=== PATIENT | male | born 1955 | race Caucasian/White ===

== ENCOUNTER → 2016-06-20 | Outpatient (CLI) | payer BC ==
[~2016-06-20] VITALS: Ht 175.3 cm; Wt 105.2 kg
[~2016-06-20] MED LIST: APIX5TAB2 PO; ASP81CT PO; ASP81TEC PO; ASPI-892 PO; ASPI-999 PO; CLOP75TA28 PO; CLPD75T PO; DIPH25TA82 PO; ESCI10TA48 PO; ESCT10T PO; IBUP-30 PO; MTP25TSR PO; NITR0.4T SL; NITR0.4T39 SL; OMEG1CAP51 PO; OMG1KC PO; REGADENOSON 0.4 MG/5 ML SYR (LEXISCAN) IV ONE; ROSU10TA PO; ROSU10TA12 PO; ROSU20TA14 PO; SOTA80TA PO; VALS1TAB76 PO; VALS80TA PO
[2016-06-20] MEDS: CATHETER FLUSH 10 ML SYR IV PRN ×2 (07:23→09:17)
[2016-06-20 09:16] VITALS: BP 149/98
--- NOTE | 2016-06-22 10:49 | STRESS TEST ---
PROCEDURE PHYSICIAN: IVON KELLY RESTING AND POST REGADENOSON TECHNETIUM 99M TETROFOSMIN SPECT CT IMAGING DATE OF PROCEDURE: 06/20/2016 ORDERING PHYSICIAN: Digna Calix APRN. PRIMARY PHYSICIAN: Dr. Arana OTHER PHYSICIAN: Dr. Kelly. CLINICAL DIAGNOSIS: Coronary artery disease, atrial fibrillation. Baseline images were carried out after injection of 10.74 mCi technetium 99m tetrofosmin. This was followed by 0.4 mg of regadenoson and 31.4 mCi technetium 99m tetrofosmin for stress imaging. The electrocardiogram showed sinus rhythm at baseline and it did not change significantly with regadenoson infusion. The patient tolerated the procedure well. Review of images at rest and following stress, does not indicate any distinct perfusion defects consistent with significant myocardial ischemia or infarction. Some degree of diaphragmatic attenuation is seen both at rest and following regadenoson infusion. Gated images show normal global left ventricular systolic function with normal regional wall motion, including the diaphragmatic wall of the left ventricle. Left ventricular ejection fraction is calculated to be 63%. Left ventricular end-diastolic 130 mL. TID is absent (0.89). CONCLUSION: 1. This study does not indicate evidence of significant myocardial ischemia or infarction. 2. Normal regional wall motion. 3. Normal global left ventricular systolic function with a calculated ejection fraction of 63%. Job ID: [id number] Dictated Date: 06/22/2016 09:14:00 Pastoral Worker Date: 06/22/2016 10:43:58 / suyapa
== END ==
LOC: CARD 06:49
PROVIDERS: ATTEND Nurse Practitioner Family
DX: I25.10 Atherosclerotic heart disease of native coronary artery without angina pectoris (principal); I48.0 Paroxysmal atrial fibrillation; I65.23 Occlusion and stenosis of bilateral carotid arteries; E78.4 Other hyperlipidemia; I10 Essential (primary) hypertension; R06.09 Other forms of dyspnea
CPT/HCPCS: 78452; 93017

== ENCOUNTER → 2016-07-27 | Outpatient (CLI) | payer BC ==
[~2016-07-27] MED LIST changes: -REGADENOSON 0.4 MG/5 ML SYR (LEXISCAN) IV ONE
== END ==
LOC: CARD 13:16
PROVIDERS: ATTEND Internal Medicine Cardiovascular Disease
DX: I10 Essential (primary) hypertension (principal); I48.0 Paroxysmal atrial fibrillation; I25.10 Atherosclerotic heart disease of native coronary artery without angina pectoris; I65.23 Occlusion and stenosis of bilateral carotid arteries; R06.09 Other forms of dyspnea; E78.4 Other hyperlipidemia; G47.33 Obstructive sleep apnea (adult) (pediatric)

== ENCOUNTER → 2018-12-03 | Outpatient (CLI) | payer BC ==
[~2018-12-03] VITALS: Ht 177 cm; Wt 104.0 kg
[~2018-12-03] MED LIST changes: +CATHETER FLUSH 10 ML SYR IV PRN; +REGADENOSON 0.4 MG/5 ML SYR (LEXISCAN) IV ONE; -ROSU10TA PO; +ROSU10TA22 PO; -SOTA80TA PO; +STL80T PO
[2018-12-03 09:08] VITALS: BP 152/96
[2018-12-03 09:10] VITALS: BP 148/89
--- NOTE | 2018-12-04 13:23 | STRESS TEST ---
DATE OF SERVICE: 12/03/2018 RESTING AND POST REGADENOSON TECHNETIUM-99M TETROFOSMIN SPECT CT IMAGING ORDERING PHYSICIAN: Digna Calix APRN PRIMARY PHYSICIAN: Dr. Arana. CLINICAL DIAGNOSIS: Coronary artery disease. Baseline images were carried out after injection of 10.75 mCi of technetium-99m Tetrofosmin. This was followed by 0.4 mg of regadenoson and 30.7 mCi of technetium-99m Tetrofosmin for stress imaging. The electrocardiogram showed sinus rhythm at baseline. It did not change significantly with the regadenoson infusion. The patient noted nausea, headache and shortness of breath following regadenoson, which resolved in a few minutes. Review of images at rest and following stress does not indicate significant perfusion defect consistent with significant myocardial ischemia or infarction. There is some diaphragmatic attenuation of the inferior wall of the left ventricle, both at rest and following regadenoson infusion. Gated images show normal regional wall motion, including the inferior wall of the left ventricle. Left ventricular ejection fraction is calculated to be 65%. Left ventricular end diastolic volume is 118 mL. TID is absent (1.08). CONCLUSIONS: 1. No evidence of significant myocardial ischemia or infarction of the study. 2. Normal regional wall motion. 3. Normal global left ventricular systolic function with an ejection fraction of 65%. 4. Mild cardiomegaly is suggested on this study. Job ID: [id number] DocumentID: [id number] Dictated Date: 12/04/2018 10:01:26 Jewel Stripper Date: 12/04/2018 13:22:11 Dictated By: IVON VERGARA MD, MA, FACP, FACC,
== END ==
LOC: CARD 07:25
PROVIDERS: ATTEND Nurse Practitioner Family
DX: I25.10 Atherosclerotic heart disease of native coronary artery without angina pectoris (principal)
CPT/HCPCS: 78452; 93017

== ENCOUNTER → 2020-07-20 | Outpatient (CLI) | payer BC ==
[~2020-07-20] VITALS: Ht 177 cm; Wt 107.0 kg
[2020-07-20 09:25] VITALS: BP 165/96
--- NOTE | 2020-07-21 13:26 | STRESS TEST ---
DATE OF SERVICE: 07/20/2018 RESTING AND POST REGADENOSON TECHNETIUM-99M TETROFOSMIN SPECT CT IMAGING ORDERING PHYSICIAN: Dr. Kelly. PRIMARY PHYSICIAN: Dr. Arana. CLINICAL DIAGNOSIS: Palpitations. Baseline images were carried out after injection of 10.10 mCi of technetium-99m Tetrofosmin. This was followed by 0.4 mg of Regadenoson and 29.6 mCi of technetium-99m Tetrofosmin for stress imaging. The electrocardiogram showed sinus rhythm at baseline. It did not change significantly with the Regadenoson infusion. Review of images at rest and following stress is technically difficult because of the patient motion during image acquisition. However, there does not appear to be any distinct evidence of significant myocardial ischemia or infarction. Gated images show normal global left ventricular systolic function with normal regional wall motion. Left ventricular ejection fraction is calculated to be 53%. TID is absent (1.1). CONCLUSIONS: 1. No evidence of any significant myocardial ischemia or infarction on this study. 2. Normal regional wall motion. 3. Normal global left ventricular systolic function with a calculated ejection fraction of 53%. Job ID: [id number] DocumentID: [id number] Dictated Date: 07/21/2020 09:46:04 [employer] Commerce Marketing Manager Date: 07/21/2020 13:25:30 Dictated By: IVON KELLY MD, MA, FACP, FACC,
== END ==
LOC: CARD 07:28
PROVIDERS: ATTEND Internal Medicine Cardiovascular Disease
DX: R00.2 Palpitations (principal)
CPT/HCPCS: 78452; 93017; 93225; 93226

== ENCOUNTER → 2021-07-25 | Outpatient (CLI) | payer MEDICARE, BC ==
[~2021-07-25] MED LIST changes: -CATHETER FLUSH 10 ML SYR IV PRN; -REGADENOSON 0.4 MG/5 ML SYR (LEXISCAN) IV ONE
== END ==
LOC: CARD 10:00
PROVIDERS: ATTEND Internal Medicine Cardiovascular Disease
DX: I48.0 Paroxysmal atrial fibrillation (principal)
CPT/HCPCS: 93225; 93226